=== PATIENT | female | born 1970 | race American Indian/Alaskan Native ===

== ENCOUNTER 2018-10-16 02:01 | Emergency (ER) | payer OTHER ==
[2018-10-16] MEDS ORDERED: FUL-GLO OP ONE (03:50)
[2018-10-16] MEDS ORDERED: TETRACAINE 0.5% OU ONE (03:50)
--- NOTE | 2018-10-16 04:52 | Emergency Department Report ---
ED Eye Problem HPI - General Chief complaint: Eye Problems Stated complaint: RT EYE PAIN W/ LT JAW SWELLING Time Seen by Provider: 10/16/18 03:02 Source: patient Mode of arrival: Ambulatory Limitations: No Limitations - History of Present Illness Initial comments: 48 yo F with pain, swelling, foreign body sensation to right eye. Pt reports 2 days ago it felt as if she had soemthing in her eye. States she has been constantly flushing it with saline since. Now has redness, lid edema, photophobia, blurred vision. Denies headache, vomiting. Hx of hypertension, noncompliant with her lisinopril x 2 weeks. States needs a refill. Also reports knot to left neck. MD chief complaint: eye pain, eye redness -: days(s) (2) Location: right eye If Injury: none Eye Symptoms: burning, redness, pain, foreign body sensation, blurry vision, photophobia Severity: moderate If Pain, Quality: burning Consistency: constant Associated Symptoms: denies: headache, nausea/vomiting, fever - Related Data Home Medications Medication Instructions Recorded Confirmed Last Taken HCTZ 25 mg PO DAILY 02/03/15 02/03/15 Unknown metFORMIN [Glucophage] 500 mg PO BID 02/03/15 02/03/15 02/02/15 Previous Rx's Medication Instructions Recorded Last Taken Type Lisinopril [Zestril TAB] 40 mg PO QDAY 1 Days #30 tablet 10/16/18 Unknown Rx Polymyxin B Sulf/Trimethoprim 1 drop OD Q4HR 7 Days #10 ml 10/16/18 Unknown Rx [Polytrim Eye Drops] Allergies Allergy/AdvReac Type Severity Reaction Status Date / Time No Known Allergies Allergy Unverified 09/11/14 02:37 ED Review of Systems ROS: Stated complaint: RT EYE PAIN W/ LT JAW SWELLING Other details as noted in HPI Comment: All other systems reviewed and negative Constitutional: denies: chills, fever Eyes: eye pain, eye discharge ENT: denies: throat pain Gastrointestinal: denies: nausea, vomiting Neurological: denies: headache ED Past Medical Hx - Past Medical History Previous Medical History?: Yes Hx Hypertension: Yes Hx Diabetes: No - Surgical History Past Surgical History?: Yes Additional Surgical History: Gastric sleeve - Social History Smoking Status: Current Some Day Smoker Substance Use Type: Alcohol - Medications Home Medications: Home Medications Medication Instructions Recorded Confirmed Last Taken Type HCTZ 25 mg PO DAILY 02/03/15 02/03/15 Unknown History metFORMIN [Glucophage] 500 mg PO BID 02/03/15 02/03/15 02/02/15 History Lisinopril [Zestril TAB] 40 mg PO QDAY 1 Days #30 tablet 10/16/18 Unknown Rx Polymyxin B Sulf/Trimethoprim 1 drop OD Q4HR 7 Days #10 ml 10/16/18 Unknown Rx [Polytrim Eye Drops] ED Physical Exam - General Limitations: No Limitations General appearance: alert, in no apparent distress - Head Head exam: Present: atraumatic, normocephalic - Eye Eye exam: Present: PERRL, EOMI, conjunctival injection, other (lid edema present; tearing present; corneal abrasion seen on Wood's lamp; no erythema or induration present on skin surrounding the eye) Pupils: Present: normal accommodation - ENT ENT exam: Present: mucous membranes moist - Neck Neck exam: Present: normal inspection, lymphadenopathy (left anterior cervical) - Respiratory Respiratory exam: Present: normal lung sounds bilaterally. Absent: respiratory distress - Cardiovascular Cardiovascular Exam: Present: regular rate, normal rhythm - GI/Abdominal GI/Abdominal exam: Absent: distended - Extremities Exam Extremities exam: Present: normal inspection - Neurological Exam Neurological exam: Present: alert, oriented X3 - Psychiatric Psychiatric exam: Present: normal affect, normal mood - Skin Skin exam: Present: warm, dry, intact, normal color. Absent: rash ED Course Vital Signs 10/16/18 10/16/18 02:11 05:01 Temperature 98.3 F Pulse Rate 54 L 78 Respiratory 18 16 Rate Blood Pressure 226/102 176/91 [Right] O2 Sat by Pulse 100 99 Oximetry ED Medical Decision Making - Differential Diagnosis conjunctivitis, corneal abrasion, iritis Critical care attestation.: If time is entered above; I have spent that time in minutes in the direct care of this critically ill patient, excluding procedure time. ED Disposition Clinical Impression: Corneal abrasion, Lymphadenopathy, anterior cervical, Uncontrolled hypertension Disposition: TO HOME OR SELFCARE Is pt being admited?: No Condition: Stable Instructions: Corneal Abrasion (ED), Chronic Hypertension (ED), Hypertension (ED) Prescriptions: Polymyxin B Sulf/Trimethoprim [Polytrim Eye Drops] 1 drop OD Q4HR 7 Days #10 ml Lisinopril [Zestril TAB] 40 mg PO QDAY 1 Days #30 tablet Referrals: PRIMARY CARE, [Primary Care Provider] - 3-5 Days NICOLETTE TRAN DO [Staff Physician] - 3-5 Days Time of Disposition: 04:52
[2018-10-16 05:01] VITALS: BP 176/91
== END 2018-10-16 05:01 | disposition home or self-care (01) ==
LOC: ED 02:01
DX: S05.01XA Injury of conjunctiva and corneal abrasion without foreign body, right eye, initial encounter (principal); R59.0 Localized enlarged lymph nodes; I10 Essential (primary) hypertension; F17.200 Nicotine dependence, unspecified, uncomplicated; Z98.890 Other specified postprocedural states; Z79.899 Other long term (current) drug therapy; X58.XXXA Exposure to other specified factors, initial encounter; Y93.89 Activity, other specified; Y92.89 Other specified places as the place of occurrence of the external cause; Y99.8 Other external cause status
CPT/HCPCS: 99283

== ENCOUNTER 2020-06-02 13:56 | Outpatient (CLI) | payer BC ==
--- NOTE | 2020-06-02 16:16 | XRay Report ---
RIGHT SHOULDER 3 VIEWS INDICATION: PAIN IN RIGHT SHOULDER. COMPARISON: None. IMPRESSION: There is normal alignment at the HC joint although it appears widened measuring 8.2 mm i n width. Minimal osteoarthritic changes are identified at the glenohumeral joint. No acute osseous o r soft tissue abnormality is detected. BILATERAL KNEES AP VIEW STANDING INDICATION: Bilateral knee pain. COMPARISON: None. IMPRESSION: No acute osseous or soft tissue abnormality. 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 No significant valgus or varus deformi ty is appreciated. No acute osseous findings or bone lesion. Signer Name: Castillo Duncan Jr, MD Signed: 06/02/2020 4:11 PM Workstation Name: [id number]
== END 2020-06-02 13:57 | disposition home or self-care (01) ==
LOC: XRAY 13:56
PROVIDERS: ATTEND Orthopaedic Surgery
DX: M19.011 Primary osteoarthritis, right shoulder (principal); M17.0 Bilateral primary osteoarthritis of knee; M25.511 Pain in right shoulder; M25.569 Pain in unspecified knee
CPT/HCPCS: 73565